=== PATIENT | male | born 1970 | race Two or more races ===

== ENCOUNTER 2019-08-26 10:10 | Emergency (ER) | payer OTHER ==
[~2019-08-26] VITALS: Ht 180.3 cm; Wt 86.2 kg
[~2019-08-26 10:10] MED LIST: AMOX1TAB12 PO; CIPRO500 MG PO; MOTRIN800 MG PO
== END 2019-08-26 13:38 | disposition home or self-care (01) ==
LOC: ER 10:10
DX: K08.89 Other specified disorders of teeth and supporting structures (principal)